=== PATIENT | female | born 1990 | race Caucasian/White ===

== ENCOUNTER 2023-11-27 20:43 | Observation (INO) | payer BC, SELFPAY ==
--- NOTE | ~2023-11-27 | CT_ITS ---
EXAMINATION: CT abdomen pelvis w con DATE: 11/27/2023 22:04 INDICATION: Epigastric abdominal pain. Nausea and vomiting and diarrhea. TECHNIQUE: Computed tomography (CT) of the abdomen and pelvis was performed with 100 mL Omnipaque 350 intravenous contrast. Automated exposure control and iterative reconstruction technique were employe d. The dose-length product was 535.81 mGy-cm. COMPARISON: None. FINDINGS: The visualized portions of the lung bases demonstrate mild atelectasis. No pleural effusion . The heart size is normal. No pericardial effusion. The liver, gallbladder, spleen, pancreas, adrena l glands, and kidneys are normal. The appendix measures 8 mm in diameter. There are no pathologically enlarged lymph nodes. There is no free intraperitoneal fluid. The bones are unremarkable. IMPRESSION: 1. Appendiceal diameter of 8 mm, but no adjacent inflammation to suggest appendicitis. Correlate with physical exam. Reviewed, dictated and finalized at location E. IMPRESSION: 1. Appendiceal diameter of 8 mm, but no adjacent inflammation to suggest append icitis. Correlate with physical exam.
[2023-11-27 20:44] VITALS: BP 108/85; PULSE 105; RESP 22; TEMP 36.6; O2SAT 99
[2023-11-27 20:59] LABS: Basophils Absolute Auto 0.1 K/mm3 (0.0-0.1); Basophils Percent Auto 0.3 % (0.2-1.2); Eosinophils Absolute Auto 0.3 K/mm3 (0-0.3); Hematocrit 40.1 % (37.0-47.0); Immature Granulocyte Absolute 0.05 K/mm3 (0.00-0.031); Immature Granulocyte Percent A 0.3 % (0-0.5); Lymphocytes Absolute Auto 3.75 K/mm3 (0.9-3.2); Mean Corpuscular HGB Conc 34.9 g/dl (32-36); Mean Corpuscular Hemoglobin 32.9 pg (26-34); Mean Corpuscular Volume 94.4 fl (80-100); Mean Platelet Volume 10.8 fl (7.4-10.4); Monocytes Absolute Auto 0.9 K/mm3 (0.1-0.6); Monocytes Percent Auto 5.7 % (2.6-8.5); Neutrophils Absolute Auto 11.2 K/mm3 (1.3-6.7); Neutrophils Percent Auto 68.7 % (45.5-73.1); Platelet Count Result 354 k/mm3 (150-375); Red Blood Count 4.25 M/mm3 (4.2-5.4); White Blood Count 16.3 K/mm3 (4.5-10.0)
[2023-11-27 21:09] LABS: Alanine Aminotransferase 15 U/L (6-35); Albumin Level 4.6 g/dL (3.5-5.1); Alkaline Phosphatase 71 U/L (38-126); Anion Gap 13 mmol/L (4-12); Aspartate Amino Transferase 20 U/L (14-36); Bilirubin,Total 0.4 mg/dL (0.2-1.3); Blood Urea Nitrogen 11 mg/dL (7-17); Calcium 9.8 mg/dL (8.4-10.2); Carbon Dioxide 22 mmol/L (22-30); Chloride 101 mmol/L (98-107); Estimated CRCL calculation 82 ml/min; Estimated Glomerular Filt Rate > 60; Glucose 110 mg/dL (65-110); Lipase 118 U/L (23-300); Potassium 3.6 mmol/L (3.4-5.0); Sodium 136 mmol/L (137-145)
[2023-11-27] MEDS: SODIUM CHLORIDE 0.9% IV 1,000 ML 999 ML IV CONT (21:35)
[2023-11-27] MEDS: MORPHINE SULFATE (*CRX) 4 MG/ML INJ IV PUSH (21:35)
[2023-11-27] MEDS: ONDANSETRON INJ 4 MG/2 ML VIAL IV PUSH (21:35)
[2023-11-27 21:58] LABS: Appearance Urine Clear (Clear); Bacteria Urine Rare /hpf; Bilirubin Urine Negative (Negative); Blood Urine Negative (Negative); Color Urine Dark Yellow (Yellow); Glucose Urine UA Negative (Negative); Ketones Urine 2+ mg/dL (Negative); Leukocyte Esterase Ur 1+ LEU/UL (Negative); Nitrate Urine Negative (Negative); Non Pathogenic Casts 0-2; Protein Urine Trace mg/dL (Negative); Specific Grav Ur 1.026 (1.001-1.035); Squamous Epithelial Cell Urine Occasional /hpf (Few); WBC Urine 21-50 /hpf (0-3); pH Urine 5.5 (5.0-9.0)
[2023-11-27 22:03] LABS: Add Urine Microscopic? YES
--- NOTE | 2023-11-27 23:02 | ED.GENADULT ---
HPI - General Adult General Chief complaint: Nausea/Vomiting/Diarrhea Stated complaint: abd pain, n/v/d Time Seen by Provider: 11/27/23 20:58 History of Present Illness HPI narrative: Patient is a 33-year-old female who presents ER with abdominal pain. Sudden onset tonight after eating. Reports she had had some diarrhea earlier in the day she has had some seeding. She had a lot of nausea vomiting this evening as well. Pain is cramping in moving from the upper part of her abdomen to the lower part. No urinary symptoms. No fevers chills or sweats. No alleviating factors. Related Data Home Medications Medication Instructions Recorded Confirmed cetirizine 10 mg tablet (Zyrtec) 10 mg PO DAILY 06/22/19 10/23/22 doxycycline hyclate 50 mg capsule 50 mg PO DAILY 06/22/19 10/23/22 Allergies Allergy/AdvReac Type Severity Reaction Status Date / Time amoxicillin AdvReac Nausea and Verified 11/27/23 21:20 Vomiting Review of Systems Review of Systems: All systems reviewed & are unremarkable except as noted in HPI and below Constitutional: Constitutional: Reports no additional constitutional complaints Cardiovascular: Cardiovascular: Reports no additional cardiovascular complaints Respiratory: Respiratory: Reports no additional respiratory complaints Gastrointestinal: Gastrointestinal: Reports abdominal pain, Reports diarrhea, Reports nausea and Reports vomiting Genitourinary: Genitourinary: Reports no additional female genitourinary complaints Musculoskeletal: Musculoskeletal: Reports no additional musculoskeletal complaints [facility] Past Medical History Medical History (Updated 11/28/23 @ 00:07 by Jose Miller MD) Healthy female adult Surgical History Surgical History (Updated 11/28/23 @ 00:05 by Jose Miller MD) No pertinent past surgical history Family History Family History Father Diabetes mellitus Mother Diabetes mellitus Mother Family history of irritable bowel syndrome Patient's mother is in good health Father Patient's father is in good health Sibling Patient's sister is in good health Patient's brother is in good health Grandparent Diabetes mellitus Social History Social History Smoking status: Never smoker Tobacco type: e-cigarettes/vaping Second hand tobacco smoke exposure: No Smoking end date: 05/20/14 Alcohol intake: never Drinks per week: 4 Substance use: current Substance use type: marijuana Living arrangements: with family Occupation/Education: occupation Gender identity (if verbalized by the patient): Female Exam Narrative: GENERAL: uncomfortable-appearing, well-nourished, and in no acute distress. HEAD: Normocephalic, atraumatic. ENT: Mucous membranes moist. NECK: Supple. CHEST: Clear to auscultation. No respiratory distress. HEART: Regular rate and rhythm. Normal peripheral pulses. ABDOMEN: Soft, mild discomfort in the upper and lower abdomen with palpation. After pain control patient has right lower quadrant tenderness with guarding. Nondistended. EXTREMITIES: Normal range of motion. No edema. SKIN: Warm, dry, no rash. NEURO: Alert and oriented x3. PSYCH: Normal mood and affect. Course Course Emergency Course: discussed with general surgery. Will admit for observation. No IV antibiotics. No pain medication after 6:00 a.m.. Patient will remain NPO. She will receive IV fluids. Discussed elevated white count, sterile pyuria, dilated appendix. Vital Signs Vital signs: Vital Signs Temperature 97.8 F 11/27/23 20:44 Pulse Rate 105 H 11/27/23 20:44 Respiratory Rate 22 H 11/27/23 20:44 Blood Pressure 108/85 11/27/23 20:44 Pulse Oximetry 99 11/27/23 20:44 Oxygen Delivery Room Air 11/27/23 20:44 Temperature 97.8 F 11/27/23 20:44 Pulse Rate 105 H 11/27/23 20:44 Respirator
[2023-11-28] VITALS (11 sets, daily range): BP systolic 92–118; BP diastolic 52–68; PULSE 60–102; RESP 12–24; TEMP 36.1–36.6; O2SAT 97–100; BMI 30.8
[2023-11-28] MEDS: SODIUM CHLORIDE 0.9% IV 1,000 ML 125 ML IV CONT ×2 (00:20→08:31)
--- NOTE | 2023-11-28 00:25 | ADMGEN ---
This patient, Laura Kilgore, was admitted to 3 [facility] S[facility] Room 326-01. Patient/family oriented to hospital policies and general routines including ID bracelet, bed and alarms, visiting hours, pain management, procedures, bathroom and other care routines, personal items, smoking policy, room service/diet, and visiting hours. Information on how to activate the Rapid Response Team has been discussed. Patient/Family are encouraged to report perceived risks to care and to ask questions if they do not understand what they are told or what they should do.
[2023-11-28 06:09] LABS: Basophils Percent Auto 0.2 % (0.2-1.2); Eosinophils Absolute Auto 0.1 K/mm3 (0-0.3); Eosinophils Percent Auto 0.6 % (0-4.4); Hematocrit 38.4 % (37.0-47.0); Hemoglobin 12.5 g/dL (12.0-15.0); Immature Granulocyte Absolute 0.08 K/mm3 (0.00-0.031); Immature Granulocyte Percent A 0.4 % (0-0.5); Lymphocytes Absolute Auto 2.84 K/mm3 (0.9-3.2); Lymphocytes Percent Auto 15.9 % (18.3-44.2); Mean Corpuscular HGB Conc 32.6 g/dl (32-36); Mean Corpuscular Hemoglobin 32.1 pg (26-34); Mean Corpuscular Volume 98.5 fl (80-100); Mean Platelet Volume 11.1 fl (7.4-10.4); Monocytes Absolute Auto 0.8 K/mm3 (0.1-0.6); Monocytes Percent Auto 4.5 % (2.6-8.5); Neutrophils Percent Auto 78.4 % (45.5-73.1); Platelet Count Result 260 k/mm3 (150-375); White Blood Count 17.9 K/mm3 (4.5-10.0)
[2023-11-28 06:25] LABS: Alanine Aminotransferase 12 U/L (6-35); Albumin Level 3.5 g/dL (3.5-5.1); Alkaline Phosphatase 49 U/L (38-126); Anion Gap 7 mmol/L (4-12); Aspartate Amino Transferase 19 U/L (14-36); Bilirubin,Total 0.7 mg/dL (0.2-1.3); Blood Urea Nitrogen 8 mg/dL (7-17); Calcium 8.3 mg/dL (8.4-10.2); Carbon Dioxide 26 mmol/L (22-30); Chloride 105 mmol/L (98-107); Estimated CRCL calculation 93 ml/min; Estimated Glomerular Filt Rate > 60; Glucose 82 mg/dL (65-110); Potassium 4.1 mmol/L (3.4-5.0); Sodium 138 mmol/L (137-145)
--- NOTE | 2023-11-28 10:38 | PM.IMHP ---
H&P: HPI History of Present Illness Date/Time: 11/28/23 10:38 Chief Complaint: Abdominal pain, vomiting, diarrhea Narrative: This is a 33-year-old woman who presented to the ED last night with complaints of vomiting, diarrhea, and abdominal pain. She reports having a sudden onset of diarrhea after eating lunch yesterday. She otherwise felt fine through the afternoon. She then tried drinking a protein shake around dinner time and reports having diarrhea and vomiting shortly after taking a few drinks of the shake. She then developed bloating and abdominal pain. She reports that her abdominal pain was initially in the upper abdomen and quickly progressed to periumbilical pain. No alleviating factors and she has never had pain like this before, so she came into the ED to be evaluated. Labs showed a WBC count of 16,300. Vital signs were stable and she was afebrile. Heart rate was initially slightly elevated at 105 bbm but has been normal since. CT scan of the abdomen and pelvis showed a mildly dilated appendix measuring 8 mm with no surrounding inflammatory stranding. No other acute intraabdominal findings. She was admitted to our service without any antibiotics for monitoring and surgical evaluation. She is seen on the medical floor this morning. Her labs showed her WBC count went up to 17,900. She reports the nausea/vomting resolved. She has not had anymore diarrhea since admission. Her abdominal pain has changed overnight and localized to the RLQ this morning. She reports the pain is more mild but she is very tender in the RLQ. No previous abdominal surgeries. UA also abnormal in the ER and urine culture was sent. When questioned about urinary symptoms, she reports off and on urinary frequency over the past few months. No dysuria, hematuria, pelvic pain/pressure, or urgency. Review of Systems Review of Systems: All systems reviewed & are unremarkable except as noted in HPI and below PMFSH Past Medical History Medical History Healthy female adult Surgical History Surgical History No pertinent past surgical history Family History Family History Father Diabetes mellitus Mother Diabetes mellitus Mother Family history of irritable bowel syndrome Patient's mother is in good health Father Patient's father is in good health Sibling Patient's sister is in good health Patient's brother is in good health Grandparent Diabetes mellitus Social History Social History Smoking status: Current every day smoker Tobacco type: e-cigarettes/vaping Second hand tobacco smoke exposure: No Smoking end date: 05/20/14 Alcohol intake: current Drinks per week: 1 Substance use: current Substance use type: marijuana Do You Feel Safe in your Home?: Yes Lack of Transportation: No Lack of Food: Never True Current Housing: I Have Housing Concerned About Future Housing: No Difficulty Paying Gas/Electric Bills: No Difficulty Paying for Meds: No Currently Unemployed: No Education: Associate Degree Difficulty w/ Childcare or Family Care: No Living arrangements: with family Occupation/Education: occupation Gender identity (if verbalized by the patient): Female Spiritual care concerns: No Meds Home Medications and Allergies Home Medications Medication Instructions Recorded Confirmed Type cetirizine 10 mg tablet (Zyrtec) 10 mg PO DAILY 06/22/19 11/28/23 History semaglutide (weight loss) 0.25 0.25 mg subcut WEEKLY 11/28/23 11/28/23 History mg/0.5 mL subcutaneous pen injector (Weganeshvchloe) spironolactone 100 mg tablet 100 mg PO DAILY 11/28/23 11/28/23 History Allergies Allergy/AdvReac Type Severity Reaction Status Date / Time amoxicillin AdvReac Nausea and Verified 11/28/23 00:39
[2023-11-28] MEDS: ERTAPENEM 1 GM/NS 50 ML 1 GM/50 ML BAG IVPB (12:18)
[2023-11-28] MEDS: ONDANSETRON INJ 4 MG/2 ML VIAL IV PUSH (13:53)
--- NOTE | 2023-11-28 13:57 | WPDHPUPDATE1 ---
History and Physical Update Update Date/Time: 11/28/23 13:57 History and Physical has been reviewed, including an updated exam of the patient. There are NO changes in the patient's condition. Risks, benefits, and alternatives have been discussed and questions answered. Patient agrees to proceed with procedure.
[2023-11-28] MEDS: ACETAMINOPHEN 500 MG TABLET 1000 MG PO (14:13)
[2023-11-28] MEDS: LACTATED RINGERS 1,000 ML 30 ML IV CONT ×2 (14:30→18:04)
--- NOTE | 2023-11-28 14:48 | PC.NURSE ---
To OR per wheelchair at 1435, IV saline locked. at bedside. Report given to NIKKI Dacosta.
--- NOTE | 2023-11-28 15:30 | WPDANESEPPF ---
Anes - Initial Pre Proc Eval Procedure: Operation Date: 11/28/23 16:00 Proposed Procedures p Laparoscopic Appendectomy,Possible Open - Fidel Wahl MD Date/Time: 11/28/23 15:30 Surgeon: Fidel Wahl MD Pre Op Diagnosis: R/O Appendicitis Patient Data Age: 33 Gender: F Height: 1.57 m Weight: 76.4 kg Last Vital Signs Temp 36.6 C 11/28/23 14:58 Pulse 94 11/28/23 14:58 Resp 18 11/28/23 14:58 BP 107/55 L 11/28/23 14:58 Pulse Ox 98 11/28/23 14:58 O2 Del Method Room Air 11/28/23 14:58 Allergies Allergy/AdvReac Type Severity Reaction Status Date / Time amoxicillin AdvReac Nausea and Verified 11/28/23 00:39 Vomiting Home Medications Medication Instructions Recorded Confirmed Type cetirizine 10 mg tablet (Zyrtec) 10 mg PO DAILY 06/22/19 11/28/23 History semaglutide (weight loss) 0.25 0.25 mg subcut WEEKLY 11/28/23 11/28/23 History mg/0.5 mL subcutaneous pen injector (Wegovy) spironolactone 100 mg tablet 100 mg PO DAILY 11/28/23 11/28/23 History Laboratory Tests 11/27/23 11/27/23 11/28/23 20:52 21:39 05:31 WBC 16.3 H K/mm3 17.9 H K/mm3 (4.5-10.0) (4.5-10.0) RBC 4.25 M/mm3 3.90 L M/mm3 (4.2-5.4) (4.2-5.4) Hgb 14.0 g/dL 12.5 g/dL (12.0-15.0) (12.0-15.0) Hct 40.1 % 38.4 % (37.0-47.0) (37.0-47.0) MCV 94.4 fl 98.5 fl (80-100) (80-100) MCH 32.9 pg 32.1 pg (26-34) (26-34) MCHC 34.9 g/dl 32.6 g/dl (32-36) (32-36) RDW 12.0 % 12.0 % (11.5-14.5) (11.5-14.5) Plt Count 354 k/mm3 260 k/mm3 (150-375) (150-375) MPV 10.8 H fl 11.1 H fl (7.4-10.4) (7.4-10.4) Immature Gran % (Auto) 0.3 % 0.4 % (0-0.5) (0-0.5) Neut % (Auto) 68.7 % 78.4 H % (45.5-73.1) (45.5-73.1) Lymph % (Auto) 23.0 % 15.9 L % (18.3-44.2) (18.3-44.2) [place] % (Auto) 5.7 % 4.5 % (2.6-8.5) (2.6-8.5) Eos % (Auto) 2.0 % 0.6 % (0-4.4) (0-4.4) Baso % (Auto) 0.3 % 0.2 % (0.2-1.2) (0.2-1.2) Lymph # (Auto) 3.75 H K/mm3 2.84 K/mm3 (0.9-3.2) (0.9-3.2) [place] # (Auto) 0.9 H K/mm3 0.8 H K/mm3 (0.1-0.6) (0.1-0.6) Eos # (Auto) 0.3 K/mm3 0.1 K/mm3 (0-0.3) (0-0.3) Baso # (Auto) 0.1 K/mm3 0.0 K/mm3 (0.0-0.1) (0.0-0.1) Abs Immat Gran (auto) 0.05 H K/mm3 0.08 H K/mm3 (0.00-0.031) (0.00-0.031) Absolute Neuts (auto) 11.2 H K/mm3 14.0 H K/mm3 (1.3-6.7) (1.3-6.7) Absolute Nucleated RBC 0.000 K/mm3 0.000 K/mm3 (0.0-0.012) (0.0-0.012) Nucleated RBC % 0.0 % 0.0 % (0.0-0.2) (0.0-0.2) Sodium 136 L mmol/L 138 mmol/L (137-145) (137-145) Potassium 3.6 mmol/L 4.1 mmol/L (3.4-5.0) (3.4-5.0) Chloride 101 mmol/L 105 mmol/L (98-107) (98-107) Carbon Dioxide 22 mmol/L 26 mmol/L (22-30) (22-30) Anion Gap 13 H mmol/L 7 mmol/L (4-12) (4-12) BUN 11 mg/dL 8 mg/dL (7-17) (7-17) Creatinine 0.80 mg/dL 0.70 mg/dL (0.7-1.0) (0.7-1.0) Estim Creat Clear Calc 82 ml/min 93 ml/min Estimated GFR > 60 > 60 (59 - ) (59 - ) Glucose 110 mg/dL 82 mg/dL (65-110) (65-110) Calcium 9.8 mg/dL 8.3 L mg/dL (8.4-10.2) (8.4-10.2) Total Bilirubin 0.4 mg/dL 0.7 mg/dL (0.2-1.3) (0.2-1.3) AST 20 U/L 19 U/L (14-36) (14-36) ALT 15 U/L 12 U/L (6-35) (6-35) Alkaline Phosphatase 71 U/L 49 U/L (38-126) (38-126) Total Protein 7.0 g/dL 6.0 L g/dL (6.3-8.2) (6.3-8.2) Albumin 4.6 g/dL 3.5 g/dL (3.5-5.1) (3.5-5.1) Lipase 118 U/L (23-300) Urine Color Dark yellow (Yellow) Urine Appearance Clear (Clear) Urine pH 5.5 (5.0-9.0) Ur Specific [place] 1.026 (1.001-1.035) Urine Protein Trace mg/dL (Negative) Urine Glucose (UA) Negative mg/dL (Negative) Urine
[2023-11-28] MEDS: KETOROLAC 30 MG/ML VIAL (*BKC) IV PUSH (17:39)
[2023-11-28] MEDS: BUPivacaine HCL 0.5% 10 ML AMP 40 ML INFILTRATE (17:55)
--- NOTE | 2023-11-28 18:07 | W.PM.PROC2 ---
Procedure Note - Detailed Date of Procedure 11/28/23 Pre-op Diagnosis Acute appendicitis Post-op Diagnosis Same Procedure Performed Laparoscopic appendectomy Surgeon Fidel Wahl MD [employer] [place] [facility] Anesthesia General Indications Patient is a 33-year-old female presented with a 24hour history of lower abdominal pain which localized to right lower quadrant the abdomen. Showed leukocytosis 17,000. CT scan abdomen pelvis showed a dilated appendix to 8mm. Clinically she appears to have acute appendicitis presents now for laparoscopic appendectomy. Findings Mild acute inflammatory change the appendix without perforation or periappendiceal abscess. Patient had 3 small 1 to 2 mm dark spots on her peritoneum in the right lower quadrant and on the dome of her bladder. These appear to be consistent small areas of endometriosis. These were cauterized. Description of Procedure After informed consent was obtained patient brought to the operating room she was placed supine position and general endotracheal anesthesia was administered. The abdomen was then prepped and draped usual sterile fashion after placement of Cummings catheter. A time-out was then performed correctly identifying the patient as well as procedure to be performed. She was already on scheduled IV antibiotics. I then entered the abdomen left upper quadrant utilizing a 5mm Optiview port. Once inside the abdomen insufflated to adequate pneumoperitoneum of 15mmHg CO2. I then placed a 5mm suprapubic trocar port, a 12mm periumbilical trocar port, and a 5mm right lower quadrant trocar port all under direct visualization. The appendix was seen in the right lower quadrant. It was mildly inflamed and dilated. There is slight erythema to the serosa of the appendix. No perforation abscess or perforation was seen. Utilizing laparoscopic grasper I then elevated the appendix and identified the base. A dissector was then used to make a defect through the mesoappendix just at the base. A 45mm Endo-LENNY stapler was then used to divide the appendix flush with the cecum. A vascular reload to the Endo-LENNY stapler was then used to divide the mesentery to the appendix. The appendix was then placed into an Endo-Catch bag and brought out through the periumbilical trocar port site. It was passed off table sent to pathology. Then irrigated out the right lower quadrant the abdomen. Small amount of bleeding from the staple line to the mesoappendix was then treated electrocautery to achieve hemostasis. All the blood in the right lower quadrant was then aspirated and hemostasis was good. I then aspirated the fluid from the pelvis. And then removed all the trocar ports under visualization all port sites appeared hemostatic. I then allowed the abdomen decompress. I then irrigated all the port sites sterile saline solution. The 12mm periumbilical trocar port fascial defect was then closed utilizing 0 Vicryl suture. The skin edges in all the port sites were then approximated utilizing a running subcuticular 4 Monocryl suture. The incisions were then cleaned the skin glue sterile dressings were applied. The patient tolerated the procedure well no complications. All sponges, needles, and instrument counts were correct at the end procedure. EBL was _10__cc. The patient was awakened and taken to recovery in stable and satisfactory condition. Implants None Estimated Blood Loss 10 Drains No Packing No Pathology Yes (Appendix to pathology) Complications No immediate complications Condition Stable Disposition PACU [facility] Billing Surgery - Charge Forward: Surgery Billing
[2023-11-28] MEDS: fentaNYL CITRATE INJ (*CRX) 100 MCG/2 ML VIAL 25 MCG IV PUSH ×4 (18:30→18:45)
[2023-11-29 02:01] VITALS: BP 105/52; PULSE 76; RESP 16; TEMP 36.3; O2SAT 99
[2023-11-29 05:59] LABS: Hematocrit 35.1 % (37.0-47.0); Hemoglobin 11.5 g/dL (12.0-15.0); Mean Corpuscular HGB Conc 32.8 g/dl (32-36); Mean Corpuscular Hemoglobin 32.7 pg (26-34); Mean Corpuscular Volume 99.7 fl (80-100); Mean Platelet Volume 11.5 fl (7.4-10.4); Platelet Count Result 227 k/mm3 (150-375); Red Blood Count 3.52 M/mm3 (4.2-5.4); White Blood Count 12.9 K/mm3 (4.5-10.0)
[2023-11-29 06:23] VITALS: BP 108/75; PULSE 81; RESP 12; TEMP 36.2; O2SAT 98
--- NOTE | 2023-11-29 07:42 | WPDANESPN ---
Anes - Prog Note Post-Op Date/Time: 11/29/23 07:42 Cardiovascular status: normal Respiratory status: normal Airway patency: baseline Mental status: baseline Post-Op hydration status: normal Vital Signs: Last Vital Signs Temp 36.2 C L 11/29/23 06:23 Pulse 81 11/29/23 06:23 Resp 12 11/29/23 06:23 BP 108/75 11/29/23 06:23 Pulse Ox 98 11/29/23 06:23 O2 Del Method Room Air 11/28/23 20:00 O2 Flow Rate 8 11/28/23 18:19 Pain Score (VAS): 06/29 I/O: Intake & Output 11/28/23 11/28/23 11/29/23 15:59 23:59 07:59 Intake Total 1050 250 450 Balance 1050 250 450 Laboratory Tests 11/29/23 05:41 11/28/23 05:31 11/29/23 05:41 WBC 12.9 H RBC 3.52 L Hgb 11.5 L Hct 35.1 L MCV 99.7 MCH 32.7 MCHC 32.8 RDW 12.0 Plt Count 227 MPV 11.5 H Microbiology 11/27/23 21:39 Urine Clean Catch Urine Culture - Final Post-procedural complaints: other (disoriented) Patient Feedback: Patient satisfied with anesthetic care. patient woke up disoriented. recommend notifying anesthesia providers in the future so they can make appropriate accomidations.
[2023-11-29 08:46] LABS: Anion Gap 9 mmol/L (4-12); Blood Urea Nitrogen 7 mg/dL (7-17); Calcium 8.4 mg/dL (8.4-10.2); Carbon Dioxide 20 mmol/L (22-30); Chloride 108 mmol/L (98-107); Estimated CRCL calculation 107 ml/min; Estimated Glomerular Filt Rate > 60; Glucose 86 mg/dL (65-110); Potassium 4.1 mmol/L (3.4-5.0); Sodium 137 mmol/L (137-145)
[2023-11-29 10:00] VITALS: BP 97/62; PULSE 64; RESP 16; TEMP 36.1; O2SAT 99
--- NOTE | 2023-11-29 10:38 | WPDPN ---
Progress Note: A&P Assessment and Plan (1) Acute appendicitis: Code(s): K35.80 - Unspecified acute appendicitis Status: Acute Assessment and Plan: Resolved after laparoscopic appendectomy. Patient doing well. Discharge home today. Follow up the office in 2 weeks. Instructions as per discharge instructions. Subjective Date/time seen: 11/29/23 10:38 Interval history: Patient is doing well 1 day after laparoscopic appendectomy. Right lower quadrant pain is now resolved. Tolerated clear liquids and then regular diet without difficulty. Only minor pain around the port site incisions. No fever. White blood cell count is decreased from 17,000 down to 12,000. Exam GI: Other: Abdomen is soft and nondistended. Port site incisions healing well. Minor ecchymosis around the umbilicus and the suprapubic trocar port site. No hematoma. Objective Data Vital Signs Vital Signs: Vital Signs - 24 hr 11/28/23 14:58 11/28/23 18:04 11/28/23 18:19 Temperature 36.6 C 36.3 C L Pulse Rate 94 102 H 87 Respiratory Rate 18 24 H 12 Blood Pressure 107/55 L 118/68 110/65 Pulse Oximetry 98 100 98 Oxygen Delivery Room Air Simple Face Mask Simple Face Mask Oxygen Flow Rate 8 8 11/28/23 18:34 11/28/23 18:50 11/28/23 20:00 Temperature Pulse Rate 61 60 Respiratory Rate 13 12 Blood Pressure 112/57 L 110/59 L Pulse Oximetry 97 98 98 Oxygen Delivery Room Air Room Air Room Air Oxygen Flow Rate 11/28/23 19:37 11/28/23 19:52 11/28/23 20:22 Temperature 36.3 C L 36.4 C L 36.5 C Pulse Rate 71 76 63 Respiratory Rate 18 18 16 Blood Pressure 112/55 L 106/52 L 106/55 L Pulse Oximetry 97 99 97 Oxygen Delivery Oxygen Flow Rate 11/28/23 21:22 11/29/23 02:01 11/29/23 06:23 Temperature 36.6 C 36.3 C L 36.2 C L Pulse Rate 72 76 81 Respiratory Rate 16 16 12 Blood Pressure 108/53 L 105/52 L 108/75 Pulse Oximetry 98 99 98 Oxygen Delivery Oxygen Flow Rate 11/29/23 10:00 Temperature 36.1 C L Pulse Rate 64 Respiratory Rate 16 Blood Pressure 97/62 L Pulse Oximetry 99 Oxygen Delivery Oxygen Flow Rate Intake/Output Intake/Output: Intake & Output 11/26/23 11/27/23 11/28/23 11/29/23 23:59 23:59 23:59 23:59 Intake Total 1000 1300 690 Balance 1000 1300 690 Meds/Results Medications: Active Medications Generic Name Dose Route Start Last Admin Trade Name Freq PRN Reason Stop Dose Admin Acetaminophen 1,000 mg 11/28/23 19:45 Acetaminophen 500 Mg Tablet PO Q6H PRN Mild Pain (1-3) or Fever Hydrocodone Bitart/Acetaminophen 1 tab 11/28/23 19:45 Hydrocodone/Acetaminophen (*Crx) 5-325 Mg Tablet PO Q4H PRN Pain Rated 4-6 Sodium Chloride 1,000 mls @ 125 mls/hr 11/27/23 23:05 11/29/23 07:01 Normal Saline Iv IV CONT Not Given .Q8H ROMAINE Morphine Sulfate 4 mg 11/28/23 19:45 Morphine Sulfate (*Crx) 4 Mg/Ml Inj IV PUSH Q4H PRN Pain Rated 7-10 Ondansetron HCl 4 mg 11/27/23 23:02 11/28/23 13:53 Ondansetron Inj 4 Mg/2 Ml Vial IV PUSH 4 mg Q4H PRN Administration Nausea Radiology Results: ITS Impressions Abdomen/Pelvis CT 11/27/23 22:05 IMPRESSION: 1. Appendiceal diameter of 8 mm, but no adjacent inflammation to suggest appendicitis. Correlate with physical exam. Labs Labs: Laboratory Results - last 24 hr 11/29/23 05:41 WBC 12.9 H RBC 3.52 L Hgb 11.5 L Hct 35.1 L MCV 99.7 MCH 32.7 MCHC 32.8 RDW 12.0 Plt Count 227 MPV 11.5 H Sodium 137 Potassium 4.1 Chloride 108 H Carbon Dioxide 20 L Anion Gap 9 BUN 7 Creatinine 0.60 L Estim Creat Clear Calc 107 Estimated GFR > 60 Glucose 86 Calcium 8.4
--- NOTE | 2023-11-29 10:43 | PM.DS ---
DS: Admitting Diagnosis Discharge Date November 29, 2023 Admitting Diagnosis Right lower quadrant abdominal pain, rule out acute appendicitis DS: Discharge Diagnosis Discharge Diagnosis (1) Acute appendicitis: Code(s): K35.80 - Unspecified acute appendicitis Status: Acute DS: Summary Hospital Course Hospital Course: Patient came to the Hospital on November 27, 2023 through the emergency room. She was complaining of lower abdominal pain and multiple episodes of diarrhea. White blood count elevated 16,000. CT scan abdomen pelvis was performed showing a appendix which is mildly dilated to 8mm but no periappendiceal inflammation. Patient continued to have lower abdominal pain and so she was admitted to the hospital for further evaluation. On the surgical floor she was given IV fluids but IV antibiotics were held. Pain medications were given but held at 6:00 a.m. the next morning. She was then examined next morning now had pain which is more localized in the right lower quadrant the abdomen. [place] [address] from 16,000 but she was afebrile. Given the ongoing pain that was now located right lower quadrant the [place] [address] it was decided she most likely had acute appendicitis and was scheduled for the operating room. She was then given 1 dose of Invanz 1g. Later in the afternoon she was taken to the operating room she underwent an uncomplicated laparoscopic appendectomy. Findings showed that she did have early acute appendicitis. Postoperatively her course in the recovery room was uneventful and she was transferred back to the surgical floor. On the surgical floor routine postoperative management was followed and started on clear liquids. She advanced to regular diet by the next morning without any difficulty. Her pain was well controlled on nonnarcotic medications and on examination her abdomen is soft and benign this morning with some expected mild tenderness around the port sites with some mild ecchymosis but no wound complications. Her right lower quadrant tenderness had resolved. It was decided postop day 1 that she can be discharged home in improved condition. Status at Discharge Functional status at discharge: independent ambulation Overall status at discharge: patient is back to baseline Time Spent with Patient Time attestation: Total time spent providing and/or coordinating discharge services: Time spent: Less than 30 minutes Exam GI: Other: Abdomen is soft and nondistended. Port site incisions are healing well with skin glue in place. Minor ecchymosis around the periumbilical and suprapubic port site. No redness or drainage. Right lower quadrant tenderness is now resolved. DS: Data Data Completed and Pending Pending studies at discharge: Pending at discharge 11/28/23 17:30 Surgical [PTH] Routine Labs on day of discharge: Labs from last 24 hours 11/29/23 05:41 WBC 12.9 H RBC 3.52 L Hgb 11.5 L Hct 35.1 L MCV 99.7 MCH 32.7 MCHC 32.8 RDW 12.0 Plt Count 227 MPV 11.5 H Sodium 137 Potassium 4.1 Chloride 108 H Carbon Dioxide 20 L Anion Gap 9 BUN 7 Creatinine 0.60 L Estim Creat Clear Calc 107 Estimated GFR > 60 Glucose 86 Calcium 8.4 Discharge Plan Discharge Attending physician on discharge: Fidel Wahl Discharging Clinician: Fidel Wahl Anticipated Discharge Date/Time: 11/29/23 10:41 Patient Disposition: Home, Self-Care Activity: may shower Diet: regular Discharge Instructions: May discharge home when stable. Follow up with Dr. Wahl in the office in 2 weeks. Patient to call [phone] for an appointment. May shower in 24hours but do not soak incisions under water for 2 weeks. No lifting more than 10 to 15 lb for 2 weeks. May advance diet as tolerated. No driving for at least 3 days or until no longer taking any narcotic pain medication. Resume all home medicati
== END 2023-11-29 11:30 | disposition home or self-care (01) ==
LOC: ANHED 21:09 → ANH3MEDSUR 23:51
PROVIDERS: Admitting Provider Surgery; Emergency Provider Emergency Medicine; PCP Family Medicine; Visit Provider Surgery
PROC: 0DTJ4ZZ Resection of Appendix, Percutaneous Endoscopic Approach (ICD-10-PCS; CPT 44970; principal; 2023-11-28 16:00)
DX: K35.30 Acute appendicitis with localized peritonitis, without perforation or gangrene (principal); R82.90 Unspecified abnormal findings in urine; F12.90 Cannabis use, unspecified, uncomplicated; Z87.891 Personal history of nicotine dependence; Z79.85 Long-term (current) use of injectable non-insulin antidiabetic drugs
CPT/HCPCS: 44970; 36415; 74177; 80048; 80053; 81001; 81025; 83690; 85025; 85027; 87086; 88304; 96361; 96374; 96375; 99285; A9270; G0378; J0330; J1100; J1335; J1596; J1885; J2250; J2270; J2405; J2704; J2710; J3010; J7030; J7120; Q9967

== ENCOUNTER 2023-12-13 11:36 | Emergency (ER) | payer OTHER, BC, SELFPAY ==
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
[2023-12-13 11:54] VITALS: BP 96/54; PULSE 75; RESP 18; TEMP 36.4; O2SAT 100
[2023-12-13] MEDS: ACETAMINOPHEN 500 MG TABLET 1000 MG PO (13:27)
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
[2023-12-13 14:37] VITALS: BP 118/76; PULSE 72; RESP 16; TEMP 36.4; O2SAT 98
== END 2023-12-13 14:39 | disposition home or self-care (01) ==
PROVIDERS: Emergency Provider Student in an Organized Health Care Education/Training Program; PCP Family Medicine
DX: S16.1XXA Strain of muscle, fascia and tendon at neck level, initial encounter (principal); V49.40XA Driver injured in collision with unspecified motor vehicles in traffic accident, initial encounter; F17.290 Nicotine dependence, other tobacco product, uncomplicated
CPT/HCPCS: 72125; 73030; 99284; A9270